=== PATIENT | female | born 1955 | race Caucasian/White ===

== ENCOUNTER 2020-06-25 09:26 | Emergency (ER) | payer OTHER ==
[~2020-06-25] VITALS: Ht 160 cm; Wt 112.5 kg
--- OUTSIDE RECORDS SUMMARY | 2020-06-25 09:30 | XMS ---
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 E.D. VISIT COUNT (12 MO.) 1 [facility] 1 RANDY Nicole TOTAL 2 NOTE: Visits indicate total known visits. ED/UCC VISIT TRACKING (12 MO.) 06/25/2020 09:27 [facility] [place] TYPE: Emergency COMPLAINT: - POSSIBLE ALLERGIC REACTION 04/25/2020 09:47 [facility] [place] TYPE: Emergency DIAGNOSES: - CELLULITIS INPATIENT VISIT TRACKING (12 MO.) 04/25/2020 09:47 [facility] [place] TYPE: Medical Surgical DIAGNOSES: - Sepsis, unspecified organism - Cellulitis, unspecified [email or web address]
[2020-06-25] MEDS ORDERED: PREDNISONE20 MG PO (10:26)
[2020-06-25] MEDS ORDERED: EPIN0.3P IM (10:26)
[2020-06-25] MEDS ORDERED: CLEOCIN HCL300 MG PO (10:26)
== END 2020-06-25 13:05 ==
LOC: ED 09:26
DX: R06.2 Wheezing (principal); R05 Cough; T36.8X5A Adverse effect of other systemic antibiotics, initial encounter; L03.116 Cellulitis of left lower limb; L03.115 Cellulitis of right lower limb; Z88.0 Allergy status to penicillin; Z88.8 Allergy status to other drugs, medicaments and biological substances; Z88.1 Allergy status to other antibiotic agents
CPT/HCPCS: 71045; 94640; 96365; 96375; 99284-25; J1100

== ENCOUNTER 2020-07-15 14:42 | Emergency (ER) | payer OTHER ==
[~2020-07-15] VITALS: Ht 160 cm; Wt 112.5 kg
[~2020-07-15 14:42] MED LIST: CLEOCIN HCL300 MG PO; EPIN0.3P IM; PREDNISONE20 MG PO
--- OUTSIDE RECORDS SUMMARY | 2020-07-15 14:58 | XMS ---
PreManage Notification: RICHMOND HERMAN Security Wafer Cleaner Events No recent Security Events currently on file CRITERIA MET - [facility] - 2 Visits in 30 Days CARE PROVIDERS Name Unknown [facility] Current PHONE: [phone] MIRA GERARD Physician Physics And Astronomy Professor Current PHONE: [phone] Jennifer Lujan Spiral Weaver/Hvac Service Technician 08/29/2018-Current PHONE: [phone] Yulissa has no Care Guidelines for this patient. E.D. VISIT COUNT (12 MO.) 1 [facility] 2 RANDY Nicole TOTAL 3 NOTE: Visits indicate total known visits. ED/UCC VISIT TRACKING (12 MO.) 07/15/2020 14:42 [facility] [place] TYPE: Emergency COMPLAINT: - LEG PAIN 06/25/2020 09:27 [facility] [place] TYPE: Emergency COMPLAINT: - POSSIBLE ALLERGIC REACTION DIAGNOSES: - Wheezing - Allergy status to other drugs, medicaments and biological substances - Allergy status to other antibiotic agents - Cellulitis of right lower limb - Allergy status to penicillin - Cellulitis of left lower limb - Wheezing - Adverse effect of other systemic antibiotics, initial encounter - Cough 04/25/2020 09:47 [facility] TYPE: Emergency DIAGNOSES: - CELLULITIS INPATIENT VISIT TRACKING (12 MO.) 04/25/2020 09:47 [facility] [place] TYPE: Medical Surgical DIAGNOSES: - Sepsis, unspecified organism - Cellulitis, unspecified [email or web address]
--- NOTE | 2020-07-15 16:59 | NUR ---
PT IS SEEN FOR A WOUND CONSULT OF THE LEFT LOWER EXTREMITY. SHE HAS SCATTERED OPEN WOUNDS, VERY CHARACTERISTIC OF VENOUS WOUNDS, WITH A POSSIBLE ARTERIAL COMPONENT. ULTRASOUND COMES DOWN TO RULE OUT A DVT, LONG THERE IS NO DVT VISIBLE, THEN THE PT WOULD BE A GOOD CANDIDATE FOR AN UNNA BOOT. THE INITIAL SCREENING SHOWED NO VISIBLE DVT'S SO AN UNNA BOOT WAS ORDER AND PLACED ON THE PT. THE UNNA BOOT IS SECURED IN PLACE WITH ROLL GAUZE AND COBAN. PT IS A RESIDENT OF [facility] RIGHT NOW, THEY WILL BE ABLE TO CONTINUE THERAPY.
== END 2020-07-15 17:32 | disposition home or self-care (01) ==
LOC: ED 14:42
DX: L97.929 Non-pressure chronic ulcer of unspecified part of left lower leg with unspecified severity (principal); I87.2 Venous insufficiency (chronic) (peripheral); J45.909 Unspecified asthma, uncomplicated; E66.01 Morbid (severe) obesity due to excess calories; F32.9 Major depressive disorder, single episode, unspecified; G47.30 Sleep apnea, unspecified; Z88.2 Allergy status to sulfonamides; Z88.8 Allergy status to other drugs, medicaments and biological substances; Z88.1 Allergy status to other antibiotic agents; Z88.0 Allergy status to penicillin; Z79.52 Long term (current) use of systemic steroids
CPT/HCPCS: 93971; 99283-25

== ENCOUNTER 2022-01-13 06:48 | Day surgery (SDC) | payer MEDICARE, OTHER ==
[~2022-01-13] VITALS: Ht 160 cm; Wt 136.4 kg
[~2022-01-13 06:48] MED LIST changes: +CHLOR-TRIMETON4 MG PO; +DIFLUCAN200 MG PO; +HYDROCODON-ACE1 EA10 PO; +PANCREAZE DR 21 EAC1 PO; +VENTOLIN HFA18 GM; +ZOLOFT100 MG PO
--- NOTE | 2022-01-13 11:23 | NUR ---
01/13/22 1123 Meredith Alba 1117 PATIENT ARRIVES TO PACU UNRESPONSIVE TO PAIN. RESP EVEN AND UNLABORED, MASK AT 6 LITERS. OCCASIONALLY NEEDS CHIN REPOSITIONED TO MAINTAIN PATENT AIRWAY.
--- NOTE | 2022-01-13 12:32 | NUR ---
RATES PAIN 4/10 STATES THIS IS PER USUAL. TAKING WATER AND CRACKERS. INSTRUCTED PT GIVE HER 15 MIN THEN WORK ON GETTING DRESSED AND CALLING CARE PROVIDER.
--- NOTE | 2022-01-13 13:08 | NUR ---
1245: PT RESTING IN BED TALKING ON PERSONAL CELL PHONE. PT REQUESTS CRACKERS WHILE WAITING FOR CAREGIVER TO COMMUTE FROM [place] TO [place] FOR SAFE RIDE HOME. PT DENIES ANY OTHER NEEDS AT THIS TIME, CALL LIGHT WITHIN REACH.
--- NOTE | 2022-01-13 14:27 | NUR ---
[id number]: IN TO PT ROOM TO ASSIST UP TO BEDSIDE COMMODE. PT DANGLES LEGS OFF SIDE OF BED, PAINFUL IN RLE. THIS RN DONS PT PANTS AND ORTHOPEDIC BOOT PLACED. PT ABLE TO PIVOT ON NON-OPERATIVE FOOT TO COMMODE; VOIDS QS. PT ABLE TO DON REST OF CLOTHING WHILE ON COMMODE AND TRANSFERS FROM COMMODE TO WC. DC INSTRUCTIONS PRESENTED VERBALLY AND WRITTEN, PT STATES ALREADY HAVING PAIN MEDICATION AT HOME. THIS RN PUSHES PT TO DONATION WORKER WAITING AT HOSPITAL ENTRANCE TO HOME.
--- NOTE | 2022-01-14 10:13 | OR ---
[facility] [address] [place], [place] [address] Signed DATE OF OPERATION: 01/13/2022 SURGEON: Nguyen Henry DPM PREOPERATIVE DIAGNOSIS: Fracture of first metatarsal with displacement. POSTOPERATIVE DIAGNOSIS: Fracture of first metatarsal with displacement. PROCEDURE: Open reduction and internal fixation of the right first metatarsal with locking plate. HINGING MACHINE OPERATOR: Anthony Horton DPM. ANESTHESIA PROVIDER: Nurse advertisement distributor, Duane Holguin. ANESTHESIA: Local with MAC consisting of 10 mL of 1:1 mixture of 0.5% ropivacaine and 2% lidocaine plain. Postoperative injection consisting of 5 mL of 0.5% ropivacaine and 1 mL of dexamethasone. HEMOSTASIS: Ankle tourniquet. ESTIMATED BLOOD LOSS: Less than 5 mL or minimal. MATERIALS UTILIZED: One locking plate system with locking screws and one nonlocking screw, also one Nitinol staple. PROCEDURE IN DETAIL: The patient was brought into the operating room and placed upon the operating room table in the supine position. Following IV sedation, the above local anesthesia was administered around the patient's right medial foot. The right foot was then scrubbed, prepped, and draped in the usual sterile technique. An Esmarch bandage was then Electronically Signed By: NGUYEN HENRY DPM 01/14/22 1013 PATIENT NAME: RICHMOND HERMAN OPERATIVE REPORT DATE OF : 57 REPORT #: [id number] PHYSICIAN: NGUYEN HENRY DPM PCP: ANDREY BENJAMIN REPORT IS CONFIDENTIAL AND NOT TO BE RELEASED WITHOUT AUTHORIZATION [facility] [address] [place], [place] [address] Signed utilized to exsanguinate the patient's right foot and then left wrapped around the ankle to act as tourniquet. Attention was then directed to the dorsal aspect of the patient's right first metatarsophalangeal joint, where approximately a 5 cm linear incision was performed both parallel and medial to the tendon of the extensor hallucis longus. This was then lined with the previous surgical site scar tissue formation. The incision was then deepened through the subcutaneous tissue down the level of the joint capsule and again the deep fascia. Majority of the soft tissue encountered at this point was scar tissue from that previous surgery approximately 3 weeks ago. Upon completion of the dissection the first metatarsal head was observed to be deviated and rotated in a valgus position or abducted. The hardware was still in place through the primary cortex of the dorsal first metatarsal. This was removed with a screwdriver and a 1.1 K-wire. Next the capital fragment of the first metatarsal fracture was freed utilizing Napanoch elevator. The soft tissue around the bone fragment was also freed utilizing McGlamry scoop elevator. Upon completion of freeing the soft tissue and also bony unions that started to occur, the articulate cartilage was then rotated into more correct distal position. A good position and stable position was identified and found with the head of the first metatarsal and a K-wire was inserted from distal to proximal back to temporary fixation. Intraoperative fluoroscopy was utilized to verify positioning and found to be good. It should be noted that this time the articular cartilage was viable and appeared to be intact, however, some deformity of the first metatarsal was observed of the articular cartilage and surface was narrowed. This was from previous foot deformity that was noted for several years. With the first metatarsal head pinned in the corrected position a 3-hole locking plate was then applied following standard AO fixation techniques. Next, a Nitinol staple was also placed just lateral to the locking plate to act as a second point of fixation. The area was then flushed with copious amount of sterile normal saline. A 3-0 Vicryl was then utilized to close the deep soft tissue, 4-0 Vicryl utilized to reapproximate the subcutaneous tissue level and the integument was closed utilizing 5-0 nylon in the continuous interlocking suture technique. The surgical site was then dressed with silver foam dressing followed by rolled gauze and Coban. The ankle tourniquet was removed and prompt hyperemic response was noted to all digits of the patient's right foot. The patient was then escorted to the recovery area by following a period of postoperative monitoring. The patient was discharged to home with both written and oral instructions. Nguyen Henry DPM /MODL /[id number] Electronically Signed By: NGUYEN HENRY DPM 01/14/22 1013 PATIENT NAME: RICHMOND HERMAN OPERATIVE REPORT DATE OF : 57 REPORT #: [id number] PHYSICIAN: NGUYEN HENRY DPM PCP: ANDREY BENJAMIN REPORT IS CONFIDENTIAL AND NOT TO BE RELEASED WITHOUT AUTHORIZATION [address] [address] Signed Copies: ~ Electronically Signed By: NGUYEN HENRY DPM 01/14/22 1013 PATIENT NAME: MARTHA HERMANBenji FREDERICKE OPERATIVE REPORT DATE OF : 57 REPORT #: [id number] PHYSICIAN: NGUYEN HENRY DPM PCP: ANDREY BENJAMIN REPORT IS CONFIDENTIAL AND NOT TO BE RELEASED WITHOUT AUTHORIZATION
== END 2022-01-13 13:48 | disposition home or self-care (01) ==
LOC: OPS 06:48 → DS 06:48 → OPS 08:30
PROVIDERS: ATTEND Podiatrist Foot & Ankle Surgery
PROC: 0QSN04Z Reposition Right Metatarsal with Internal Fixation Device, Open Approach (ICD-10-PCS; principal; 2022-01-13 08:30)
DX: S92.311A Displaced fracture of first metatarsal bone, right foot, initial encounter for closed fracture (principal); E66.9 Obesity, unspecified; Z88.5 Allergy status to narcotic agent; Z88.0 Allergy status to penicillin; Z91.013 Allergy to seafood; Z88.1 Allergy status to other antibiotic agents; Z68.43 Body mass index [BMI] 50.0-59.9, adult; Z88.6 Allergy status to analgesic agent; Z88.8 Allergy status to other drugs, medicaments and biological substances; X58.XXXA Exposure to other specified factors, initial encounter
CPT/HCPCS: 73620; 73630; J1100; J2250; J2405; J2704; J2795; J3010; J7121